=== PATIENT | male | born 1940 | race Two or more races ===

== ENCOUNTER 2017-11-05 06:15 | Day surgery (SDC) | payer OTHER ==
[~2017-11-05 06:15] MED LIST: FELODIPINE ER10 MG PO; ZOCOR PO
[2017-11-05] MEDS ORDERED: ALEVE220 M1 PO (11:59)
[2017-11-05] MEDS ORDERED: DUI500 PO (11:59)
[2017-11-05] MEDS ORDERED: PERCOCET 5-3251 EACH PO (11:59)
== END 2017-11-05 14:30 | disposition home or self-care (01) ==
LOC: CIR.AMB 06:15
DX: S52.571A Other intraarticular fracture of lower end of right radius, initial encounter for closed fracture (principal)
CPT/HCPCS: 25609; 20902; C1776